=== PATIENT | female | born 1980 | race American Indian/Alaskan Native ===

== ENCOUNTER 2022-04-27 03:23 | Emergency (ER) | payer SELFPAY ==
[2022-04-27] MEDS ORDERED: IBUPROFEN 800 MG TAB PO ONE (11:30)
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
[2022-04-27 13:44] VITALS: BP 142/91
== END 2022-04-27 13:43 | disposition home or self-care (01) ==
LOC: ED 03:23
DX: S13.4XXA Sprain of ligaments of cervical spine, initial encounter (principal); M54.9 Dorsalgia, unspecified; I10 Essential (primary) hypertension; V89.2XXA Person injured in unspecified motor-vehicle accident, traffic, initial encounter; Y93.89 Activity, other specified; Y92.89 Other specified places as the place of occurrence of the external cause; Y99.8 Other external cause status
CPT/HCPCS: 72040; 72070; 72100; 99283